=== PATIENT | male | born 1980 | race Caucasian/White ===

== ENCOUNTER → 2019-07-23 08:17 | Outpatient (CLI) | payer OTHER, SELFPAY ==
[2019-07-23 11:20] LABS: T4 Free Direct 0.99 ng/dL (0.76-1.46); Thyroid Stim Hormone (TSH) 1.38 uIU/mL (0.358-3.74)
== END ==
PROVIDERS: PCP Family Medicine; Referring Provider Family Medicine; Visit Provider Family Medicine
DX: E04.1 Nontoxic single thyroid nodule (principal)
CPT/HCPCS: 36415; 84439; 84443

== ENCOUNTER → 2019-07-23 08:57 | Outpatient (CLI) | payer OTHER, SELFPAY ==
--- NOTE | 2019-07-23 09:00 | US_ITS ---
STUDY: THYROID ULTRASOUND REASON FOR EXAM: Male, 39 years old. nodule TECHNIQUE: Ultrasound evaluation of the thyroid was performed with real-time and static marin-scale imaging. COMPARISON: None. FINDINGS: RIGHT LOBE: The right lobe of the thyroid gland measures 4.5 x 1.4 x 1.7 cm. There is a homogeneous echotexture. 3 mm colloid cyst in the inferior right lobe. LEFT LOBE: The left lobe of the thyroid gland measures 4.4 x 1.6 x 1.0 cm. There is a homogeneous echotexture. 4 mm septated colloid cyst in the mid left lobe. ISTHMUS: The isthmus measures 3 mm thick. . The regional lymph nodes are normal. US/Thyroid IMPRESSION: Normal ultrasound examination of the thyroid. 2 small colloid cysts. Electronically Signed: Peter Thao MD at 12:40 EST Tel , Service support ,
== END ==
PROVIDERS: PCP Family Medicine; Referring Provider Family Medicine; Visit Provider Family Medicine
DX: E04.1 Nontoxic single thyroid nodule (principal)
CPT/HCPCS: 76536